=== PATIENT | male | born 1970 | race Caucasian/White ===

== ENCOUNTER 2023-05-04 13:24 | Emergency (ER) | payer OTHER | END 2023-05-04 18:05 | disposition home or self-care (01) | LOC: JP.ED 13:24 | DX: S67.190A Crushing injury of right index finger, initial encounter (principal); I10 Essential (primary) hypertension; E11.9 Type 2 diabetes mellitus without complications; E78.00 Pure hypercholesterolemia, unspecified; Z79.899 Other long term (current) drug therapy; W23.0XXA Caught, crushed, jammed, or pinched between moving objects, initial encounter | CPT/HCPCS: 12001; 73140-26-F6; 73140-F6; 99283 ==